=== PATIENT | female | born 1950 | race Caucasian/White ===

== ENCOUNTER 2017-05-22 09:47 | Day surgery (SDC) | payer MEDICARE, OTHER ==
--- NOTE | 2017-05-20 16:12 | PCM.ANEPRE ---
Anesthesia Pre-Op Review Reason for Review: CARDIAC ARRYTHMIA POST REMOTE ABLATION-NO CURRENT EKG Anesthesia Recommendations: See Anesthesia Orders, Proceed with Procedure Additional Comments 66 yo F for right breast biopsy. History of SID with non-compliance with CPAP, history of A.fib ablation but continues to be in chronic a.fib. Last EKG 2015. Appears otherwise stable. Proceed with surgery, EKG on morning of procedure. Chart Reviewed by: Marco A Ugalde MD May 20, 2017 16:12
[~2017-05-22] VITALS: Ht 162.6 cm; Wt 107.2 kg
[2017-05-22] VITALS (10 sets, daily range): BP systolic 116–141; BP diastolic 54–92; PULSE 78–112; RESP 14–22; O2SAT 96–99
[~2017-05-22 09:47] MED LIST: ALEN70TA2 PO; ASPI-973 PO; IBUP-1827 PO; LIP40 PO; METO25TA99 PO
[2017-05-22] MEDS ORDERED: Dexamethasone 4 mg/mL Inj ONE (09:48)
[2017-05-22] MEDS ORDERED: MetoCLOpramide 5 mg/mL 2 mL Inj ONE (09:48)
[2017-05-22] MEDS ORDERED: Propofol 10,000 mCg/mL 20 mL Inj ONE (09:48)
[2017-05-22] MEDS ORDERED: Ondansetron 2 mg/mL 2 mL Inj ONE (09:48)
[2017-05-22] MEDS ORDERED: fentaNYL-PF 50 mCg/mL 2 mL Inj ONE (09:48)
[2017-05-22] MEDS: Lactated Ringer's 1,000 ML IV SCH ×2 (09:50→10:41)
[2017-05-22] MEDS ORDERED: Bupivacaine-MPF 0.5% W/EPI 30 mL Inj INFILTRATE ONE (10:41)
[2017-05-22] MEDS ORDERED: Lactated Ringer's 1,000 ML IV SCH (11:01)
[2017-05-22] MEDS ORDERED: Lactated Ringer's 500 ML IV PRN (11:01)
[2017-05-22] MEDS ORDERED: Dexamethasone 4 mg/mL Inj IVPUSH PRN (11:05)
[2017-05-22] MEDS ORDERED: MetoCLOpramide 5 mg/mL 2 mL Inj IVPUSH PRN (11:05)
[2017-05-22] MEDS ORDERED: HYDROmorphone 1 mg/mL Inj IVPUSH PRN (11:05)
[2017-05-22] MEDS ORDERED: fentaNYL-PF 50 mCg/mL 2 mL Inj IVPUSH PRN (11:05)
[2017-05-22] MEDS ORDERED: Ondansetron 2 mg/mL 2 mL Inj IVPUSH PRN (11:05)
[2017-05-22] MEDS ORDERED: EPHEDrine Sulfate 50 mg/mL Inj IVPUSH PRN (11:05)
[2017-05-22] MEDS ORDERED: Phenylephrine 10,000 mCg/mL Inj IVPUSH PRN (11:05)
--- NOTE | 2017-05-22 11:44 | PCM.DISURG ---
Surgical Discharge Instruction Date of Service May 22, 2017 Dates of Hospitalization Date of Hospital Admission Providers Admitting Physician: Primary Care Physician: Sarah Mayer MD Attending Physician: Rolan Delgado MD Discharge Diagnosis Discharge Diagnosis Right breast calcifications Diet Discharge Diet: No restrictions Activity Discharge Activity-General: No restrictions, Activity as pain allows Dressing and Incisional Care Dressing Care: Allow Steri Stripes to fall off, Remove outer dressing after 24 hrs Hygiene: May shower after (24 hours) Follow Up Plan Follow Up Plan With Dr. Delgado in surgery clinic in 7-10 days Call your provider for: Fever (over 101.5), Discharge @ incision, pus discharge Rolan Delgado MD May 22, 2017 11:44
[2017-05-22] MEDS ORDERED: HYDROcodone-APAP 5-325 mg Tablet PO PRN (11:45)
[2017-05-22] MEDS ORDERED: Ketorolac 15 mg/mL Inj IVPUSH PRN (11:45)
--- NOTE | 2017-05-22 11:51 | PCM.SURGOP ---
Surgical Operative Report Date of Service: May 22, 2017 Pre Operative Diagnosis Right breast calcifications Post Operative Diagnosis Same Procedure: Wire localized right breast excisional biopsy Surgeon and Chief Specialist Leed: Surgeon: Rolan Delgado MD Assistants: Javi Levy PA-C Indication for Procedure 66-year-old woman who was found to have a cluster of suspicious calcifications on mammogram in the right breast 3 o'clock position. Stereotactic biopsy was performed which demonstrated sclerosing adenosis and a minute hyalinized fibroadenoma. On follow-up mammogram there was a cluster of residual or recurrent microcalcifications, still indeterminate, BI-RADS 4. Excisional biopsy was recommended. After discussion of risks and benefits, she agreed to proceed. Findings: The calcifications were successfully localized. Procedure Details Preoperatively, the patient underwent wire localization in the [facility]. She was then brought to the operating room, where she underwent smooth induction of general anesthesia with an LMA. She was placed in the supine position with both arms out, and was prepped and draped in wide sterile fashion. A procedural pause was performed according to the SCOAP checklist, and all were found to be in agreement. A transverse incision was made in the upper inner quadrant of the right breast, midway between the nipple and the wire entry site medially. Skin flaps were raised superiorly and inferiorly. The wire was delivered into the wound from the medial aspect. Using the wire as a guide, dissection was carried down along the wire until the portion of the wire was encountered. Circumferential dissection was then carried out with electrocautery, and the wire was not encountered again. The excised breast tissue from the upper-inner quadrant of the right breast was oriented with suture, and a specimen radiograph was obtained. His confirmed that the mammographic clip as well as the microcalcifications had been successfully localized. The tissue was sent for permanent pathology, labeled as right breast tissue, upper inner quadrant. Hemostasis was adequate. Hemoclips were used to renzo the cavity. The breast parenchyma was closed with interrupted 3-0 Vicryl suture. The skin incision was closed with a running 4-0 Vicryl subcuticular stitch. Steri-Strips and sterile dressings were applied. At the end of the case all needle and sponge counts were correct 2. The patient was awakened from anesthesia without difficulty, and taken to the recovery room in satisfactory condition, having tolerated the procedure well. Complications There were no periprocedural complications identified. Surgical Specimen Removed: Yes Specimen sent to Pathology: Yes Surgical Specimen description: Right breast tissue, upper inner quadrant. Anesthetic Plan: GA Grafts, Implants: None Output, Estimated Blood Loss: 10 Blood Administration during mathur: No Drains: None Catheters: None copies to: Javi Randolph MD, Joshua D MD May 22, 2017 11:51
--- NOTE | 2017-05-25 07:39 | DRSVH ---
SPECIMEN: 05/22/2017 CLINICAL: Breast specimen right. Correlation is made to exams dated: 05/22/2017 mammogram, 01/28/2017 mammogram, 08/21/2016 stereotactic biopsy - [facility], and 08/13/2016 mammogram - [facility]. IMPRESSION: SPECIMEN Right breast specimen radiograph demonstrating targeted calcifications. Findings discussed via tele phone with Jany in the OR at the time of specimen radiograph. This exam was interpreted at Station ID: [id number]. Paolo Patel M.D. cj/:05/22/2017 12:45:04 Additional referring physicians: JOSE MANUEL BANKS NATALIA USONA
== END 2017-05-22 23:59 | disposition home or self-care (01) ==
LOC: SAS 09:47
PROVIDERS: ATTEND Student in an Organized Health Care Education/Training Program
DX: N60.11 Diffuse cystic mastopathy of right breast (principal); R92.1 Mammographic calcification found on diagnostic imaging of breast; Z79.82 Long term (current) use of aspirin; G47.33 Obstructive sleep apnea (adult) (pediatric); I48.2 Chronic atrial fibrillation
CPT/HCPCS: 19125; 76098; 88307; 93005; J1100; J2405; J2765; J3010; J7120